=== PATIENT | female | born 1970 | race Hispanic/Latino ===

== ENCOUNTER → 2025-04-15 | Outpatient (CLI) | payer MEDICARE, MEDICAID ==
[2025-04-15 12:41] LABS: CREATININE 0.8 mg/dL (0.5-1.0); GAMMA GLUTAMYL TRANSFERASE 10.0 U/L (5-85); GLOMERULAR FILTR. RATE CALC 86.0 mL/min (>90); INR 1.05 (0.85-1.15); UREA NITROGEN, BLOOD 27.0 mg/dL (7-18)
== END | disposition home or self-care (01) ==
LOC: LAB 11:14
PROVIDERS: ATTEND Internal Medicine Gastroenterology
DX: D69.6 Thrombocytopenia, unspecified (principal); R94.5 Abnormal results of liver function studies; E11.9 Type 2 diabetes mellitus without complications; E78.2 Mixed hyperlipidemia; K31.84 Gastroparesis; R12 Heartburn; K59.04 Chronic idiopathic constipation; H54.8 Legal blindness, as defined in USA; Z86.0100 Personal history of colon polyps, unspecified; Z86.73 Personal history of transient ischemic attack (TIA), and cerebral infarction without residual deficits
CPT/HCPCS: 36415; 82565; 82977; 84520; 85610

== ENCOUNTER → 2025-04-21 | Outpatient (CLI) | payer MEDICARE, MEDICAID ==
[~2025-04-21] MED LIST: IOHEXOL 350 MG/ML 100ML INFUS..BTL IV ONE
--- NOTE | 2025-04-22 11:30 | HMCIMG ---
EXAMINATION: CT Abdomen 3-phase without and with contrast. CLINICAL HISTORY: Thrombocytopenia, unspecified. TECHNIQUE: Multiple contiguous axial CT images were obtained through the abdomen following the administration of intravenous contrast. Coronal and sagittal reconstructions were also obtained. COMPARISON: None. FINDINGS: Included chest is within normal limits. The liver is normal in caliber with uniform normal density. The gallbladder, spleen, pancreas, adrenal glands and kidneys appear within normal limits. Bowel loops are normal in caliber without evidence of obstruction, ileus, or obvious bowel wall thickening. There is no ascites or lymphadenopathy. The opacified abdominal vessels are patent. There are atheromatous wall calcification of the aorta and iliac arteries. No acute or suspicious osseous abnormality. There are multilevel mild degenerative spondylotic changes of the spine. IMPRESSION: Normal CT of the abdomen. /Luna
== END | disposition home or self-care (01) ==
LOC: RAH 07:54
PROVIDERS: ATTEND Internal Medicine Gastroenterology
DX: I70.0 Atherosclerosis of aorta (principal); D69.6 Thrombocytopenia, unspecified; M47.816 Spondylosis without myelopathy or radiculopathy, lumbar region; I70.8 Atherosclerosis of other arteries
CPT/HCPCS: 74170; Q9967